=== PATIENT | male | born 1960 | race Caucasian/White ===

== ENCOUNTER 2016-11-30 06:36 | Day surgery (SDC) | payer OTHER ==
[~2016-11-30] VITALS: Ht 172.7 cm; Wt 123.5 kg
[2016-11-30 08:10] VITALS: Ht 172.7 cm; Wt 123.5 kg
[2016-11-30] MEDS ORDERED: LOSA25TA5 PO (08:12)
[2016-11-30] MEDS ORDERED: GLIP-95 PO (08:12)
[2016-11-30 08:41] VITALS: BP 118/71; PULSE 54; RESP 17
[2016-11-30] MEDS ORDERED: PROPOFOL 80 ML ONE (09:10)
--- NOTE | 2016-11-30 09:13 | OPPN ---
Date/Time of Note Date/Time of Note DATE: 11/30/16 TIME: 09:12 Operative Report Preoperative Diagnosis Positive occult blood in stool Postoperative Diagnosis Four small colon polyps were removed Internal hemorrhoids Operation/Procedure Performed Colonoscopy and biopsy Surgeon see signature line records assistant None Anesthesia: MAC Estimated blood loss: none Transfusion Required none Specimen Colon polyps Grafts/Implants none Complications none BIANCA WESLEY MD Nov 30, 2016 09:13
[2016-11-30 09:35] VITALS: BP 105/73; RESP 14
--- NOTE | 2016-11-30 11:11 | GILP ---
DATE OF PROCEDURE: NAME OF PROCEDURES: Colonoscopy and biopsy. SURGEON: Tania Rodriguez MD PREOPERATIVE DIAGNOSIS: Positive occult blood in stool. POSTOPERATIVE DIAGNOSES 1. Colonoscopy all the way to the cecum. 2. Four small colon polyps were removed using the biopsy forceps. 3. Internal hemorrhoids. INDICATION FOR THE PROCEDURE: Mr. Armando Post is a 55-year-old male patient who was noted to have positive occult blood in stool. The procedure and possible complications were well explained to the patient. The patient understood and consented to the procedure. DESCRIPTION OF PROCEDURE: Under the influence of anesthesia, the colonoscope was carefully introduc ed in the rectum and under direct vision, it was advanced all the way to the cecum. FINDINGS: The patient had 4 small polyps and they were removed using the biopsy forceps. He was no vonnie to have internal hemorrhoids. He tolerated the procedure very well and there was no complication from the procedure. At the end o f the procedure, he was awake with stable vital signs and he was discharged home to the care of his family. IMPRESSION: 1. Colonoscopy all the way to the cecum. 2. Four small colon polyps were removed. 3. Internal hemorrhoids. PLAN: 1. Await histopathology report. 2. Next screening colonoscopy in 5 years. Dictated By: TANIA GUAN/NGUYEN Conf#: [id number] DID#: [id number]
== END 2016-11-30 09:44 | disposition home or self-care (01) ==
LOC: GIL 06:36
PROVIDERS: ATTEND Internal Medicine Gastroenterology
DX: D12.6 Benign neoplasm of colon, unspecified (principal); K64.8 Other hemorrhoids; R19.5 Other fecal abnormalities; E78.5 Hyperlipidemia, unspecified; E11.9 Type 2 diabetes mellitus without complications; I10 Essential (primary) hypertension; E66.01 Morbid (severe) obesity due to excess calories; Z68.41 Body mass index [BMI] 40.0-44.9, adult
CPT/HCPCS: 45380; 82962; 88305; Z7610